=== PATIENT | male | born 1990 | race African-American/Black ===

== ENCOUNTER 2019-04-27 12:53 | Day surgery (SDC) | payer OTHER ==
[2019-04-27] VITALS (7 sets, daily range): BP systolic 122–157; BP diastolic 87–100
[~2019-04-27] VITALS: Ht 193 cm; Wt 103.0 kg
[~2019-04-27 12:53] MED LIST: BUPIVAcaine/PF 2.5 mg/ml (0.25%) 30ml vial ONE; bacitracin 15gm ointment TP ONE; ceFAZolin 1000mg inj ONE
--- NOTE | 2019-04-27 13:25 | NUR ---
CHINYERE 67. PT ASYMPTOMATIC. DR YU AND MANUFACTURING COORDINATOR NOTIFIED, PATIENT TAKEN DIRECTLY TO THE OR-NO NEW ORDERS RECEIVED Addendum: 04/27/19 at 1350 by Preeti Nolan RN Amended: Links added.
[2019-04-27] MEDS ORDERED: sevoflurane 250ml liquid IH ONE (13:26)
[2019-04-27] MEDS ORDERED: dexamethasone sod phosphate 10mg/ml inj ONE (13:26)
[2019-04-27] MEDS ORDERED: ketorolac trometh. 30mg/ml inj. ONE (13:26)
[2019-04-27] MEDS ORDERED: ROPIVAcaine 0.5% (5mg/ml) 30ml vial ONE (13:27)
[2019-04-27] MEDS ORDERED: fentaNYL/PF 50MCG/1 ML 2ML syringe ONE (13:29)
[2019-04-27] MEDS ORDERED: propofol inj 20 ML IV ONE (13:29)
[2019-04-27] MEDS ORDERED: LIDOcaine 2% (20mg/ml) 5ml vial ONE (13:29)
[2019-04-27] MEDS ORDERED: midazolam 2 mg/2 ml injection ONE (13:29)
[2019-04-27] MEDS ORDERED: NO HOME MEDS (13:30)
[2019-04-27] MEDS ORDERED: ondansetron/PF 4mg/2ml inj ONE (13:42)
[2019-04-27] MEDS ORDERED: meperidine/PF 25mg/ml syringe IV PRN ×2 (14:00)
[2019-04-27] MEDS ORDERED: ondansetron/PF 4mg/2ml inj IV PRN (14:00)
[2019-04-27] MEDS ORDERED: ringers solution, lacted 1,000 ML IV SCH ×2 (14:00→14:30)
[2019-04-27] MEDS ORDERED: hydrALAZINE 20mg/ml inj. IV PRN (14:00)
[2019-04-27] MEDS ORDERED: morphine 4 MG/ML inj SYRINge IV PRN ×2 (14:00)
[2019-04-27] MEDS ORDERED: labetalol 20mg/4ml (5mg/ml) syringe IV PRN (14:00)
[2019-04-27] MEDS ORDERED: famotidine 20mg tablet PO ONE (14:30)
[2019-04-27] MEDS ORDERED: cefazolin/dext.iso 2gm/100 ML IV ONE (14:30)
--- NOTE | 2019-04-27 14:39 | NUR ---
Received from OR via [facility], accompanied by Anesthesiologist Diamond and report given by Anesthesiolgist. Pt brought with hand wrapped in gauze, splint present with todd wrap. Cap refill less than 3 seconds. Pt not yet answering to verbal stimuli, VS stable.IVF running at 100cc/hr.
--- NOTE | 2019-04-27 15:39 | NUR ---
Pt left floor with fci guards, IV DC'd, some tingling to fingers with good cap refill and no drainage CDI dressing. RFS papers copied and given to the guards. Pt given crackers apple sauce and water, good gag reflex tolerated without issues. Pt walks without problems. Stable for discharge.
== END 2019-04-27 15:39 ==
LOC: PAS 12:53 → EEVIPCON 16:30
PROVIDERS: ATTEND Orthopaedic Surgery
DX: S63.041A Subluxation of carpometacarpal joint of right thumb, initial encounter (principal); X58.XXXA Exposure to other specified factors, initial encounter; Y93.89 Activity, other specified; Y92.89 Other specified places as the place of occurrence of the external cause; Y99.9 Unspecified external cause status
CPT/HCPCS: 26650; 82948; C1713; J0690; J1100; J1885; J2001; J2250; J2405; J2704; J3010; J3490; A4215; A4618; A6449; A7000; J2795; J7120